=== PATIENT | female | born 2000 | race American Indian/Alaskan Native ===

== ENCOUNTER 2018-12-16 09:19 | Emergency (ER) | payer MEDICAID ==
[2018-12-16 10:11] LABS: Basophils # (Auto) 0.1 K/mm3 (0.0-0.1); Basophils % (Auto) 0.6 % (0.0-1.8); Eosinophils # (Auto) 0.2 K/mm3 (0.0-0.4); Eosinophils % (Auto) 2.7 % (0.0-4.3); Hematocrit 38.8 % (30.3-42.9); Hemoglobin 12.9 gm/dl (10.1-14.3); Lymphocytes # (Auto) 3.1 K/mm3 (1.2-5.4); Lymphocytes % (Auto) 35.9 % (13.4-35.0); Mean Corpuscular HGB Conc 33 % (30-34); Mean Corpuscular Volume 91 fl (79-97); Monocytes # (Auto) 0.4 K/mm3 (0.0-0.8); Platelet Count 262 K/mm3 (140-440); Red Blood Count 4.28 M/mm3 (3.65-5.03); Red Cell Distribution Width 15.5 % (13.2-15.2)
--- NOTE | 2018-12-16 10:26 | Emergency Department Report ---
ED Female HPI - General Chief complaint: Vaginal Bleeding Stated complaint: 12 WKS /BLEEDING/PAIN Time Seen by Provider: 12/16/18 09:56 Source: patient Mode of arrival: Ambulatory Limitations: No Limitations - History of Present Illness Initial comments: This 18-year-old presents to ED at approximately 12 weeks gestation with last menstrual period of 09/11/2018 presents with vaginal bleeding 3 days. She states that she noticed a couple of blood clot clumps in her vaginal bleed. Patient reports he received care at [facility]. SHe states she was seen there is some weeks ago and was about 8 weeks gestation. She reports bleeding has minimal light with lower pelvic cramping. She denies fevers/chills/dysuria/chest pain/shortness of breath or any other symptoms MD Complaint: vaginal bleeding - Related Data Previous Rx's Medication Instructions Recorded Last Taken Type Nitrofurantoin [place]/M-Cryst 100 mg PO Q12HR #14 capsule 12/16/18 Unknown Rx [Macrobid CAP] Allergies Allergy/AdvReac Type Severity Reaction Status Date / Time No Known Allergies Allergy Unverified 12/16/18 09:19 ED Review of Systems ROS: Stated complaint: 12 WKS /BLEEDING/PAIN Other details as noted in HPI ED Past Medical Hx - Past Medical History Previous Medical History?: No - Surgical History Past Surgical History?: No - Social History Smoking Status: Never Smoker Substance Use Type: None - Medications Home Medications: Home Medications Medication Instructions Recorded Confirmed Last Taken Type Nitrofurantoin [place]/M-Cryst 100 mg PO Q12HR #14 capsule 12/16/18 Unknown Rx [Macrobid CAP] ED Physical Exam - General Limitations: No Limitations General appearance: alert, in no apparent distress - Head Head exam: Present: atraumatic, normocephalic - Eye Eye exam: Present: normal appearance - ENT ENT exam: Present: mucous membranes moist - Neck Neck exam: Present: normal inspection - Respiratory Respiratory exam: Present: normal lung sounds bilaterally. Absent: respiratory distress - Cardiovascular Cardiovascular Exam: Present: regular rate, normal rhythm. Absent: systolic murmur, diastolic murmur, rubs, gallop - GI/Abdominal GI/Abdominal exam: Present: soft, normal bowel sounds - Extremities Exam Extremities exam: Present: normal inspection - Back Exam Back exam: Present: normal inspection - Neurological Exam Neurological exam: Present: alert, oriented X3 - Psychiatric Psychiatric exam: Present: normal affect, normal mood - Skin Skin exam: Present: warm, dry, intact, normal color. Absent: rash ED Course Vital Signs 12/16/18 12/16/18 09:25 12:39 Temperature 97.7 F Pulse Rate 80 Respiratory 16 18 Rate Blood Pressure 125/78 O2 Sat by Pulse 100 100 Oximetry ED Medical Decision Making - Lab Data Result diagrams: 12/16/18 09:48 12/16/18 09:48 Laboratory Last Values WBC 8.8 K/mm3 (4.5-11.0) 12/16/18 09:48 RBC 4.28 M/mm3 (3.65-5.03) 12/16/18 09:48 Hgb 12.9 gm/dl (10.1-14.3) 12/16/18 09:48 Hct 38.8 % (30.3-42.9) 12/16/18 09:48 MCV 91 fl (79-97) 12/16/18 09:48 MCH 30 pg (28-32) 12/16/18 09:48 MCHC 33 % (30-34) 12/16/18 09:48 RDW 15.5 % (13.2-15.2) H 12/16/18 09:48 Plt Count 262 K/mm3 (140-440) 12/16/18 09:48 Lymph % (Auto) 35.9 % (13.4-35.0) H 12/16/18 09:48 [place] % (Auto) 5.0 % (0.0-7.3) 12/16/18 09:48 Eos % (Auto) 2.7 % (0.0-4.3) 12/16/18 09:48 Baso % (Auto) 0.6 % (0.0-1.8) 12/16/18 09:48 Lymph # 3.1 K/mm3 (1.2-5.4) 12/16/18 09:48 [place] # 0.4 K/mm3 (0.0-0.8) 12/16/18 09:48 Eos # 0.2 K/mm3 (0.0-0.4) 12/16/18 09:48 Baso # 0.1 K/mm3 (0.0-0.1) 12/16/18 09:48 Seg Neutrophils % 55.8 % (40.0-70.0) 12/16/18 09:48 Seg Neutrophils # 4.9 K/mm3 (1.8-7.7) 12/16/18 09:48 Sodium 137 mmol/L (137-145) 12/16/18 09:48 Potassium 3.8 mmol/L (3.6-5.0) 12/16/18 09:48 Chloride 102.1 mmol/L (98-107) 12/16/18 09:48 Carbon Dioxide 23 mmol/L (22-30) 12/16/18 09:48 Anion Gap 16 mmol/L 12/16/18 09:48 BUN 9 mg/dL (7-17) 12/16/18 09:48 Creatinine 0.7 mg/dL (0.7-1.2) 12/16/18 09:48 Estimated GFR > 60 ml/min 12/16/18 09:48 BUN/Creatinine Ratio 13 % 12/16/18 09:48 Glucose 90 mg/dL (65-100) 12/16/18 09:48 Calcium 9.0 mg/dL (8.4-10.2) 12/16/18 09:48 HCG, Quant 2509 mIU/mL (0-4) H 12/16/18 09:48 Urine Color Yellow (Yellow) 12/16/18 10:21 Urine Turbidity Hazy (Clear) 12/16/18 10:21 Urine pH 7.0 (5.0-7.0) 12/16/18 10:21 Ur Specific [place] 1.015 (1.003-1.030) 12/16/18 10:21 Urine Protein <15 mg/dl mg/dL (Negative) 12/16/18 10:21 Urine Glucose (UA) Neg mg/dL (Negative) 12/16/18 10:21 Urine Ketones Neg mg/dL (Negative) 12/16/18 10:21 Urine Blood Mod (Negative) 12/16/18 10:21 Urine Nitrite Neg (Negative) 12/16/18 10:21 Urine Bilirubin Neg (Negative) 12/16/18 10:21 Urine Urobilinogen < 2.0 mg/dL (<2.0) 12/16/18 10:21 Ur Leukocyte Esterase Sm (Negative) 12/16/18 10:21 Urine WBC (Auto) 12.0 /HPF (0.0-6.0) H 12/16/18 10:21 Urine RBC (Auto) 14.0 /HPF (0.0-6.0) 12/16/18 10:21 U Epithel Cells (Auto) 1.0 /HPF (0-13.0) 12/16/18 10:21 Urine Bacteria (Auto) 2+ /HPF (Negative) 12/16/18 10:21 Urine Mucus Few /HPF 12/16/18 10:21 Blood Type B POSITIVE 12/16/18 09:48 Ord Rhogam Gestat Weeks Rh pos WEEKS 12/16/18 09:48 - Radiology Data Radiology results: report reviewed, image reviewed US OB <= 14 weeks fetus, US OB transvaginal /ULTRASOUND OB - TRANSABDOMINAL AND TRANSVAGINAL INDICATION: vag bleed for 3 days. COMPARISON: None. FINDINGS: Transabdominal and transvaginal pelvic ultrasound performed in this patient with stated clinical age of 12 weeks and 3 days and EDC of 06/27/2019. Serum beta-hCG not available at this time. A 8.7 x 5.5 x 7.1 cm retroverted uterus with heterogeneous endometrial thickness of 1.4 cm toward the fundus, endovaginal image 26. No sonographic evidence of an intrauterine gestation at this time. No significant pelvic free fluid. Both ovaries appear within normal limits. Right ovary is 3 x 1.2 x 2.1 cm. Left ovary estimated at 2 x 1.2 x 3.6 cm. IMPRESSION: No sonographic evidence of a viable intrauterine gestation at this time with nonspecific endometrial heterogeneity towards the fundus and a retroverted uterus incidentally noted, as described. Please also correlate clinically for accuracy of the LMP/ clinical age and with (serial) serum beta-hCG values. Thank you for the opportunity to participate in this patient's care. Signer Name: Marialuisa Duncan Signed: 12/16/2018 11:50 AM Workstation Name: [id number] Transcribed By: DAPHNEY Dictated By: MARIALUISA DUNCAN MD Electronically Authenticated By: MARIALUISA DUNCAN MD Signed Date/Time: 12/16/18 1150 - Medical Decision Making 18-year-old female presents to ED with complete spontaneous ED course: Pt received ultra sound, CBC, urinalysis, test and quantitative ED All labs within normal limits, quantitative elevated to 2500. This is low for a of 12 weeks Ultrasound shows no intrauterine and uterus. See reported above Discussed all this findings with the patient. I discussed with the patient most likely she had a miscarriage. Vital signs normalized patient is in no acute distress. I discussed with the patient if follow-up with her [facility] woman [facility] in 2-3 days for repeat blood work I discussed all labs and ultrasound findings with the patient. I discussed with the patient that he if bleeding worsens or new symptoms develop to return to ED immediately Critical care attestation.: If time is entered above; I have spent that time in minutes in the direct care of this critically ill patient, excluding procedure time. ED Disposition Clinical Impression: Vaginal bleeding during , Spontaneous , UTI (urinary tract infection) during Disposition: TO HOME OR SELFCARE Is pt being admited?: No Does the pt Need Aspirin: No Condition: Stable Instructions: Spontaneous Miscarriage (ED), Urinary Tract Infection in Women (ED) Additional Instructions: Make sure to follow up with the [facility] as discussed in 2-3 days for repeat bloodwork Take all your medications as you've been prescribed for Uti. If you have any worsening symptoms or develop new symptoms please return to ED immediately. Prescriptions: Nitrofurantoin [place]/M-Cryst [Macrobid CAP] 100 mg PO Q12HR #14 capsule Referrals: PRIMARY CAREMD [Referring] - 3-5 Days Forms: Work/School Release Form(ED) Time of Disposition: 13:32
[2018-12-16 10:31] LABS: BUN/Creatinine Ratio 13; Blood Urea Nitrogen 9 mg/dL (7-17); Hemolysis Index 2
[2018-12-16 10:48] LABS: Bacteria,Urine 2+ /HPF (Negative); Bilirubin,Urine NEG (Negative); Blood,Urine MOD (Negative); Color,Urine Yellow (Yellow); Mucus,Urine FEW /HPF; Protein,Urine <15 mg/dL mg/dL (Negative); Urobilinogen,Urine < 2.0 mg/dL (<2.0)
[2018-12-16] MEDS ORDERED: TYLENOL PO ONE (11:39)
--- NOTE | 2018-12-16 11:54 | Ultrasound Report ---
US OB <= 14 weeks fetus, US OB transvaginal /ULTRASOUND OB - TRANSABDOMINAL AND TRANSVAGINAL INDICATION: vag bleed for 3 days. COMPARISON: None. FINDINGS: Transabdominal and transvaginal pelvic ultrasound performed in this patient with stated cli nical age of 12 weeks and 3 days and EDC of 06/27/2019. Serum beta-hCG not available at this time. A 8.7 x 5.5 x 7.1 cm retroverted uterus with heterogeneous endometrial thickness of 1.4 cm toward the fundus, endovaginal image 26. No sonographic evidence of an intrauterine gestation at this time. No significant pelvic free fluid. Both ovaries appear within normal limits. Right ovary is 3 x 1.2 x 2.1 cm. Left ovary estimated at 2 x 1.2 x 3.6 cm. IMPRESSION: No sonographic evidence of a viable intrauterine gestation at this time with nonspecific endometrial heterogeneity towards the fundus and a retroverted uterus incidentally noted, as describe d. Please also correlate clinically for accuracy of the LMP/clinical age and with (serial) serum beta -hCG values. Thank you for the opportunity to participate in this patient's care. Signer Name: Marialuisa Lopez Signed: 12/16/2018 11:50 AM Workstation Name: [id number]
[2018-12-16 14:21] VITALS: BP 120/74
== END 2018-12-16 14:19 | disposition home or self-care (01) ==
LOC: ED 09:19
DX: O03.9 Complete or unspecified spontaneous abortion without complication (principal); O23.41 Unspecified infection of urinary tract in pregnancy, first trimester; Z3A.12 12 weeks gestation of pregnancy; Z79.899 Other long term (current) drug therapy
CPT/HCPCS: 36415; 76801; 76817; 80048; 81001; 84702; 85025; 86900; 86901; 87076; 87086; 87186; 96372; 99284

== ENCOUNTER 2019-04-23 21:35 | Emergency (ER) | payer MEDICAID ==
[2019-04-23 21:45] VITALS: BP 114/78
--- NOTE | 2019-04-23 22:17 | XRay Report ---
Left knee 3 views INDICATION: Left knee pain following injury IMPRESSION: Small knee effusion. No fracture or subluxation or significant degenerative change. No ra diopaque foreign body appreciated. Signer Name: Don Winters MD Signed: 04/23/2019 10:12 PM Workstation Name: [id number]
[2019-04-23] MEDS ORDERED: LIDOCAINE (1%) 10 MG/1 ML VIAL 20 ML MDV INFILTRATI ONE (22:40)
[2019-04-23] MEDS ORDERED: TETANUS,DIPH,PERTUSS(ACELL) VACCINE 0.5 ML SYRINGE IM ONE (22:40)
[2019-04-23] MEDS ORDERED: HYDROcodone/ACETAMINOPHEN 5-325 MG TAB PO ONE (22:40)
[2019-04-23] MEDS ORDERED: HYDROcodone/ACETAMINOPHEN 5-325 MG TAB ONE (22:43)
--- NOTE | 2019-04-23 22:58 | Emergency Department Report ---
ED Lower Extremity HPI - General Chief Complaint: Extremity Injury, Lower Stated Complaint: KNEE INJURY Time Seen by Provider: 04/23/19 22:25 Source: patient Mode of arrival: Ambulatory Limitations: No Limitations - History of Present Illness Initial Comments: Patient is a 18-year-old female presents emergency room with complaints of falling out of the bed that occurred just prior to arrival. She states that she fell directly onto her left knee which fell onto a glass and broke the glass. She has a lacerations to her left knee. She states that she has pain in her left knee. She is ambulatory with discomfort. She is unsure of her last tetanus immunization. She denies any numbness or weakness. She denies any past medical history. She denies any allergies to medications. - Related Data Previous Rx's Medication Instructions Recorded Last Taken Type Nitrofurantoin [place]/M-Cryst 100 mg PO Q12HR #14 capsule 12/16/18 Unknown Rx [Macrobid CAP] Ibuprofen [Motrin 400 MG tab] 400 mg PO Q8H PRN #14 tablet 04/24/19 Unknown Rx traMADoL [Ultram 50 MG tab] 50 mg PO Q6HR PRN #7 tablet 04/24/19 Unknown Rx Allergies Allergy/AdvReac Type Severity Reaction Status Date / Time No Known Allergies Allergy Verified 04/23/19 22:49 ED Review of Systems ROS: Stated complaint: KNEE INJURY Other details as noted in HPI Comment: All other systems reviewed and negative ED Past Medical Hx - Past Medical History Previous Medical History?: No - Surgical History Past Surgical History?: No - Social History Smoking Status: Never Smoker Substance Use Type: Marijuana - Medications Home Medications: Home Medications Medication Instructions Recorded Confirmed Last Taken Type Nitrofurantoin [place]/M-Cryst 100 mg PO Q12HR #14 capsule 12/16/18 Unknown Rx [Macrobid CAP] Ibuprofen [Motrin 400 MG tab] 400 mg PO Q8H PRN #14 tablet 04/24/19 Unknown Rx traMADoL [Ultram 50 MG tab] 50 mg PO Q6HR PRN #7 tablet 04/24/19 Unknown Rx ED Physical Exam - General Limitations: No Limitations General appearance: alert, in no apparent distress - Head Head exam: Present: atraumatic, normocephalic - Eye Eye exam: Present: normal appearance - ENT ENT exam: Present: mucous membranes moist - Extremities Exam Extremities exam: Present: other (3 cm laceration present to the left anterior lau just inferior to the left knee, directly inferior to this laceration there is another 4 cm laceration, there is a 1 cm superificial laceration present to the left anterior knee, FROM of the left knee with discomfort upon flexion, no obvious deformity, no obvious foreign body, bleeding controlled, neurovascularly intact, no tendon/muscle involvement) - Neurological Exam Neurological exam: Present: alert, oriented X3 - Psychiatric Psychiatric exam: Present: normal affect, normal mood - Skin Skin exam: Present: warm, dry ED Course Vital Signs 04/23/19 04/24/19 21:38 00:50 Temperature 97.9 F 97.9 F Pulse Rate 94 H 94 H Respiratory 18 18 Rate Blood Pressure 114/78 O2 Sat by Pulse 99 99 Oximetry - Laceration /Wound Repair Left Leg Wound Location: lower extremity (two lacerations to the left leg just inferior to the left knee) Wound Length (cm): 4 Wound's Depth, Shape: superficial Wound Explored: clean Irrigated w/ Saline (ccs): 100 Betadine Prep?: Yes Anesthesia: 1% Lidocaine Volume Anesthetic (ccs): 10 Wound Debrided: minimal Wound Repaired With: sutures Suture Size/Type: 4:0 Number of Sutures: 13 Layer Closure?: No Sterile Dressing Applied?: Yes Progress: 2 lacerations irrigated with saline and thoroughly scrubbed with Betadine, no foreign body, no muscle/tendon involvement, 4 cc of 1% lidocaine without epinephrine used for the 3 cm laceration, 6 cc of 1% lidocaine without epinephrine used for the 4 cm laceration, Betadine prep again, sterile drapes applied, sterile gloves worn, 3 cm laceration closed with 4-0 Prolene 6 sutures placed, 4 cm laceration closed with 4-0 Prolene 7 sutures placed, a total of 13 sutures were placed, patient tolerated well, bleeding controlled, no complications, sterile dressing applied ED Lower Extremity MDM - Radiology Data Radiology results: report reviewed Left knee 3 views INDICATION: Left knee pain following injury IMPRESSION: Small knee effusion. No fracture or subluxation or significant degenerative change. No radiopaque foreign body appreciated. Signer Name: Don Winters MD Signed: 04/23/2019 10:12 PM Workstation Name: [id number] Transcribed By: Dictated By: Don Winters MD Electronically Authenticated By: Don Winters MD Signed Date/Time: 04/23/192211 DD/ 10 TD/TT: - Medical Decision Making Patient is a 18-year-old female presents emergency room with complaints of falling out of the bed that occurred just prior to arrival. She states that she fell directly onto her left knee which fell onto a glass and broke the glass. She has a lacerations to her left knee. She states that she has pain in her left knee. She is ambulatory with discomfort. She is unsure of her last tetanus immunization. She denies any numbness or weakness. She denies any past medical history. She denies any allergies to medications. on exam: 3 cm laceration present to the left anterior lau just inferior to the left knee, directly inferior to this laceration there is another 4 cm laceration, there is a 1 cm superificial laceration present to the left anterior knee, FROM of the left knee with discomfort upon flexion, no obvious deformity, no obvious foreign body, bleeding controlled, neurovascularly intact, no tendon/muscle involvement. 2 larger lacerations repaired per procedure note. Smaller superficial laceration repaired with Dermabond and Steri-Strips by nurse. XR left knee: Small knee effusion. No fracture or subluxation or significant degenerative change. No radiopaque foreign body appreciated. Ordered for patient to receive knee immobilizer and crutches. Patient given tetanus immunization. Patient's pain treated while in the emergency department. Patient given prescription for tramadol and ibuprofen. advised pt to Please take medication as prescribed as needed. Do not drive or operate machinery while taking pain medication. Please keep areas clean, dry, covered. please wash with soap and water and immediately dry. No hot tub, pool, soaking in water. Follow-up with orthopedic doctor. Follow-up with a primary care doctor. Sutures will need to be removed in 10 to 14 days. Return to the emergency room for any new or worsening symptoms or any signs of infection. - Differential Diagnosis strain, sprain, fx, dislocation, laceration, abrasion, contusion, effusion Critical care attestation.: If time is entered above; I have spent that time in minutes in the direct care of this critically ill patient, excluding procedure time. ED Disposition Clinical Impression: Laceration Left knee pain Qualifiers: Chronicity: acute Qualified Code(s): M25.562 - Pain in left knee Disposition: DC-01 TO HOME OR SELFCARE Is pt being admited?: No Does the pt Need Aspirin: No Condition: Stable Instructions: Suture Care (ED), Laceration (ED), Knee Pain (ED) Additional Instructions: Please take medication as prescribed as needed. Do not drive or operate machinery while taking pain medication. Please keep areas clean, dry, covered. please wash with soap and water and immediately dry. No hot tub, pool, soaking in water. Follow-up with orthopedic doctor. Follow-up with a primary care doctor. Sutures will need to be removed in 10 to 14 days. Return to the emergency room for any new or worsening symptoms or any signs of infection. Prescriptions: Ibuprofen [Motrin 400 MG tab] 400 mg PO Q8H PRN #14 tablet PRN Reason: Pain, Moderate (4-6) traMADoL [Ultram 50 MG tab] 50 mg PO Q6HR PRN #7 tablet PRN Reason: Pain , Severe (7-10) Referrals: TESS CORLEY MD [Staff Physician] - 2-3 Days [facility] [Provider Group] - 2-3 Days ARIADNA BUCHANAN MD [Staff Physician] - 2-3 Days ARAMIS HUTCHINS MD [Staff Physician] - 2-3 Days [facility] [Outside] - 2-3 Days Time of Disposition: 00:06 Print Language: CZECH
== END 2019-04-24 00:51 | disposition home or self-care (01) ==
LOC: ED 21:35
DX: S81.012A Laceration without foreign body, left knee, initial encounter (principal); M25.562 Pain in left knee; F12.90 Cannabis use, unspecified, uncomplicated; Z79.899 Other long term (current) drug therapy; W06.XXXA Fall from bed, initial encounter; Y93.89 Activity, other specified; Y92.89 Other specified places as the place of occurrence of the external cause; Y99.8 Other external cause status
CPT/HCPCS: 90471; 90715

== ENCOUNTER 2020-02-13 12:53 | Emergency (ER) | payer MEDICAID ==
[2020-02-13 12:58] VITALS: BP 103/59
--- NOTE | 2020-02-13 13:55 | Event Note ---
ED Screening Note ED Screening Note: states she had 3 test over the counter, states she first did it in december LNMP: 12/05/2019 states she began having bleeding and pain last week states it is intermittent no fever no v/d no dysuria PMHx none no allergies to meds /P:1/A:1 This initial assessment/diagnostic orders/clinical plan/treatment(s) is/are subject to change based on patients health status, clinical progression and re- assessment by fellow clinical providers in the ED. Further treatment and workup at subsequent clinical providers discretion. Patient/guardian urged not to elope from the ED as their condition may be serious if not clinically assessed and managed. Initial orders include: labs, UA, US
[2020-02-13 14:03] LABS: HCG Qualitative,Urine Negative (Negative)
[2020-02-13 14:06] LABS: Bacteria,Urine 1+ /HPF (Negative); Bilirubin,Urine NEG (Negative); Blood,Urine NEG (Negative); Color,Urine Yellow (Yellow); Mucus,Urine 2+ /HPF; Urobilinogen,Urine < 2.0 mg/dL (<2.0)
[2020-02-13 14:27] LABS: Basophils % (Auto) 0.4 % (0.0-1.8); Eosinophils # (Auto) 0.2 K/mm3 (0.0-0.4); Eosinophils % (Auto) 2.1 % (0.0-4.3); Hematocrit 40.6 % (30.3-42.9); Hemoglobin 13.6 gm/dl (10.1-14.3); Lymphocytes # (Auto) 3.1 K/mm3 (1.2-5.4); Mean Corpuscular HGB Conc 33 % (30-34); Mean Corpuscular Volume 94 fl (79-97); Monocytes # (Auto) 0.5 K/mm3 (0.0-0.8); Monocytes % (Auto) 5.9 % (0.0-7.3); Platelet Count 233 K/mm3 (140-440); Red Blood Count 4.31 M/mm3 (3.65-5.03)
[2020-02-13 14:49] LABS: Alanine Aminotransferase 12 units/L (7-56); Albumin 4.4 g/dL (3.9-5); Blood Urea Nitrogen 9 mg/dL (7-17); Calcium 9.5 mg/dL (8.4-10.2); Hemolysis Index 3
[2020-02-13 14:52] LABS: BUN/Creatinine Ratio 13
--- NOTE | 2020-02-13 15:52 | Ultrasound Report ---
PELVIC ULTRASOUND HISTORY: Pelvic pain. FINDINGS: Imaging was performed by transabdominally and endovaginally. The uterus measures 8.1 x 4.9 x 5.7 cm. The endometrial stripe measures 6 mm. Right ovary measures 3 x 2 x 2.6 cm. Left ovary measures 5.2 x 1.4 x 2.1 cm. Both ovaries demonstrate flow. Negative for adnexal mass or fluid collection. Trace free fluid is seen at the cul-de-sac. IMPRESSION: 1. Uterus and ovaries unremarkable. 2. Trace free fluid at the cul-de-sac. Signer Name: Jaden Servin MD Signed: 02/13/2020 3:47 PM Workstation Name: [id number]
--- NOTE | 2020-02-13 16:24 | Emergency Department Report ---
ED General Adult HPI - General Chief complaint: Vaginal Bleeding Stated complaint: BLEEDING/MISCARRIAGE Time Seen by Provider: 02/13/20 13:52 Source: patient Mode of arrival: Ambulatory Limitations: No Limitations - History of Present Illness Initial comments: pt is a 19 yo female who presents to the ED states she had 3 positive test over the counter, states she first did it in december LNMP: 12/05/2019 states she began having bleeding and pain last week states it is intermittent she has not seen anyone for this no fever no v/d no dysuria does not report any vaginal discharge or irritation PMHx none no allergies to meds /P:1/A:1 - Related Data Previous Rx's Medication Instructions Recorded Last Taken Type Nitrofurantoin Brule/M-Cryst 100 mg PO Q12HR #14 capsule 12/16/18 Unknown Rx [Macrobid CAP] Ibuprofen [Motrin 400 MG tab] 400 mg PO Q8H PRN #14 tablet 04/24/19 Unknown Rx traMADoL [Ultram 50 MG tab] 50 mg PO Q6HR PRN #7 tablet 04/24/19 Unknown Rx cephALEXin [Keflex] 500 mg PO BID 7 Days #14 cap 02/13/20 Unknown Rx Allergies Allergy/AdvReac Type Severity Reaction Status Date / Time No Known Allergies Allergy Verified 02/13/20 12:54 ED Review of Systems ROS: Stated complaint: BLEEDING/MISCARRIAGE Other details as noted in HPI Comment: All other systems reviewed and negative ED Past Medical Hx - Past Medical History Previous Medical History?: No - Surgical History Past Surgical History?: No - Social History Smoking Status: Never Smoker - Medications Home Medications: Home Medications Medication Instructions Recorded Confirmed Last Taken Type Nitrofurantoin Brule/M-Cryst 100 mg PO Q12HR #14 capsule 12/16/18 Unknown Rx [Macrobid CAP] Ibuprofen [Motrin 400 MG tab] 400 mg PO Q8H PRN #14 tablet 04/24/19 Unknown Rx traMADoL [Ultram 50 MG tab] 50 mg PO Q6HR PRN #7 tablet 04/24/19 Unknown Rx cephALEXin [Keflex] 500 mg PO BID 7 Days #14 cap 02/13/20 Unknown Rx ED Physical Exam - General Limitations: No Limitations General appearance: alert, in no apparent distress - Head Head exam: Present: atraumatic, normocephalic - Eye Eye exam: Present: normal appearance - ENT ENT exam: Present: mucous membranes moist - Respiratory Respiratory exam: Present: normal lung sounds bilaterally. Absent: respiratory distress, wheezes, rales, rhonchi, stridor, chest wall tenderness, accessory muscle use, decreased breath sounds, prolonged expiratory - Cardiovascular Cardiovascular Exam: Present: regular rate, normal rhythm, normal heart sounds. Absent: systolic murmur, diastolic murmur, rubs, gallop - GI/Abdominal GI/Abdominal exam: Present: soft, normal bowel sounds. Absent: distended, tenderness, guarding, rebound, rigid - Neurological Exam Neurological exam: Present: alert, oriented X3 - Psychiatric Psychiatric exam: Present: normal affect, normal mood - Skin Skin exam: Present: warm, dry, intact ED Course Vital Signs 02/13/20 12:55 Temperature 98 F Pulse Rate 97 H Respiratory 18 Rate Blood Pressure 103/59 O2 Sat by Pulse 97 Oximetry ED Medical Decision Making - Lab Data Result diagrams: 02/13/20 14:01 02/13/20 14:01 Lab Results 02/13/20 02/13/20 02/13/20 Range/Units 14:01 14:01 14:01 WBC 8.0 (4.5-11.0) K/mm3 RBC 4.31 (3.65-5.03) M/mm3 Hgb 13.6 (10.1-14.3) gm/dl Hct 40.6 (30.3-42.9) % MCV 94 (79-97) fl MCH 32 (28-32) pg MCHC 33 (30-34) % RDW 14.0 (13.2-15.2) % Plt Count 233 (140-440) K/mm3 Lymph % (Auto) 38.0 H (13.4-35.0) % Brule % (Auto) 5.9 (0.0-7.3) % Eos % (Auto) 2.1 (0.0-4.3) % Baso % (Auto) 0.4 (0.0-1.8) % Lymph # (Auto) 3.1 (1.2-5.4) K/mm3 Brule # (Auto) 0.5 (0.0-0.8) K/mm3 Eos # (Auto) 0.2 (0.0-0.4) K/mm3 Baso # (Auto) 0.0 (0.0-0.1) K/mm3 Seg Neutrophils % 53.6 (40.0-70.0) % Seg Neutrophils # 4.3 (1.8-7.7) K/mm3 Sodium 139 (137-145) mmol/L Potassium 3.7 (3.6-5.0) mmol/L Chloride 104.3 (98-107) mmol/L Carbon Dioxide 26 (22-30) mmol/L Anion Gap 12 mmol/L BUN 9 (7-17) mg/dL Creatinine 0.7 (0.6-1.2) mg/dL Estimated GFR > 60 ml/min BUN/Creatinine Ratio 13 % Glucose 82 (65-100) mg/dL Calcium 9.5 (8.4-10.2) mg/dL Total Bilirubin 0.40 (0.1-1.2) mg/dL AST 18 (5-40) units/L ALT 12 (7-56) units/L Alkaline Phosphatase 57 (35-129) units/L Total Protein 7.7 (6.3-8.2) g/dL Albumin 4.4 (3.9-5) g/dL Albumin/Globulin Ratio 1.3 % HCG, Quant < 2 (0-4) mIU/mL Urine Color (Yellow) Urine Turbidity (Clear) Urine pH (5.0-7.0) Ur Specific Mcdonald (1.003-1.030) Urine Protein (Negative) mg/dL Urine Glucose (UA) (Negative) mg/dL Urine Ketones (Negative) mg/dL Urine Blood (Negative) Urine Nitrite (Negative) Ur Reducing Substances Urine Bilirubin (Negative) Urine Ictotest Urine Urobilinogen (<2.0) mg/dL Ur Leukocyte Esterase (Negative) Urine WBC (Auto) (0.0-6.0) /HPF Urine RBC (Auto) (0.0-6.0) /HPF U Epithel Cells (Auto) (0-13.0) /HPF Urine Bacteria (Auto) (Negative) /HPF Urine Mucus /HPF Urine HCG, Qual (Negative) Blood Type 02/13/20 02/13/20 Range/Units 14:06 Unknown WBC (4.5-11.0) K/mm3 RBC (3.65-5.03) M/mm3 Hgb (10.1-14.3) gm/dl Hct (30.3-42.9) % MCV (79-97) fl MCH (28-32) pg MCHC (30-34) % RDW (13.2-15.2) % Plt Count (140-440) K/mm3 Lymph % (Auto) (13.4-35.0) % Brule % (Auto) (0.0-7.3) % Eos % (Auto) (0.0-4.3) % Baso % (Auto) (0.0-1.8) % Lymph # (Auto) (1.2-5.4) K/mm3 Brule # (Auto) (0.0-0.8) K/mm3 Eos # (Auto) (0.0-0.4) K/mm3 Baso # (Auto) (0.0-0.1) K/mm3 Seg Neutrophils % (40.0-70.0) % Seg Neutrophils # (1.8-7.7) K/mm3 Sodium (137-145) mmol/L Potassium (3.6-5.0) mmol/L Chloride (98-107) mmol/L Carbon Dioxide (22-30) mmol/L Anion Gap mmol/L BUN (7-17) mg/dL Creatinine (0.6-1.2) mg/dL Estimated GFR ml/min BUN/Creatinine Ratio % Glucose (65-100) mg/dL Calcium (8.4-10.2) mg/dL Total Bilirubin (0.1-1.2) mg/dL AST (5-40) units/L ALT (7-56) units/L Alkaline Phosphatase (35-129) units/L Total Protein (6.3-8.2) g/dL Albumin (3.9-5) g/dL Albumin/Globulin Ratio % HCG, Quant (0-4) mIU/mL Urine Color Yellow (Yellow) Urine Turbidity Slightly-cloudy (Clear) Urine pH 7.0 (5.0-7.0) Ur Specific Mcdonald 1.024 (1.003-1.030) Urine Protein 30 mg/dl (Negative) mg/dL Urine Glucose (UA) Neg (Negative) mg/dL Urine Ketones Neg (Negative) mg/dL Urine Blood Neg (Negative) Urine Nitrite Neg (Negative) Ur Reducing Substances Not Reportable Urine Bilirubin Neg (Negative) Urine Ictotest Not Reportable Urine Urobilinogen < 2.0 (<2.0) mg/dL Ur Leukocyte Esterase Mod (Negative) Urine WBC (Auto) 21.0 H (0.0-6.0) /HPF Urine RBC (Auto) 9.0 (0.0-6.0) /HPF U Epithel Cells (Auto) 11.0 (0-13.0) /HPF Urine Bacteria (Auto) 1+ (Negative) /HPF Urine Mucus 2+ /HPF Urine HCG, Qual Negative (Negative) Blood Type B POSITIVE - Radiology Data Radiology results: report reviewed Ordering Physician: JOESPH SINGH Date of Service: 02/13/20 Procedure(s): US transvaginal Accession Number(s): [id number] cc: JOESPH SINGH PELVIC ULTRASOUND HISTORY: Pelvic pain. FINDINGS: Imaging was performed by transabdominally and endovaginally. The uterus measures 8.1 x 4.9 x 5.7 cm. The endometrial stripe measures 6 mm. Right ovary measures 3 x 2 x 2.6 cm. Left ovary measures 5.2 x 1.4 x 2.1 cm. Both ovaries demonstrate flow. Negative for adnexal mass or fluid collection. Trace free fluid is seen at the cul-de-sac. IMPRESSION: 1. Uterus and ovaries unremarkable. 2. Trace free fluid at the cul-de-sac. Signer Name: Jaden Servin MD Signed: 02/13/2020 3:47 PM Workstation Name: [id number] Transcribed By: ES Dictated By: Jaden Servin MD Electronically Authenticated By: Jaden Servin MD Signed Date/Time: 02/13/20 1547 DD/ 1546 TD/TT: - Medical Decision Making pt is a 19 yo female who presents to the ED states she had 3 positive test over the counter, states she first did it in december LNMP: 12/05/2019 states she began having bleeding and pain last week states it is intermittent she has not seen anyone for this no fever no v/d no dysuria does not report any vaginal discharge or irritation PMHx none no allergies to meds /P:1/A:1 Vitals are stable. No abdominal tenderness on exam, no guarding, no rebound, no rigidity, normal bowel sounds, no peritoneal signs. Labs are normal. hCG quant is less than 2. UA shows evidence of UTI. US: 1. Uterus and ovaries unremarkable. 2. Trace free fluid at the cul-de-sac. Discussed with patient that she is not . Discussed findings of UTI with patient. Discussed the importance of PATIENT OFFICE REP follow-up given abnormal menstrual cycles. She states that she goes to [facility]. Patient given prescription for Keflex. Advised patient Please take medication as prescribed. Increase your water i ntake. May take Tylenol or ibuprofen as needed for any discomfort. Follow-up with PATIENT OFFICE REP. Follow-up with primary care doctor. Return to emergency room for new or worsening symptoms. - Differential Diagnosis IUP, ectopic, AUB, UTI, hemorrhagic cyst, fibroids, endometriosis Critical care attestation.: If time is entered above; I have spent that time in minutes in the direct care of this critically ill patient, excluding procedure time. ED Disposition Clinical Impression: Irregular menses UTI (urinary tract infection) Qualifiers: Urinary tract infection type: acute cystitis Hematuria presence: with hematuria Qualified Code(s): N30.01 - Acute cystitis with hematuria Disposition: - TO HOME OR SELFCARE Is pt being admited?: No Does the pt Need Aspirin: No Condition: Stable Instructions: Abnormal Uterine Bleeding, Urinary Tract Infection, Adult, [id number] Additional Instructions: Please take medication as prescribed. Increase your water intake. May take Tylenol or ibuprofen as needed for any discomfort. Follow-up with PATIENT OFFICE REP. Follow-up with primary care doctor. Return to emergency room for new or worsening symptoms. Prescriptions: cephALEXin [Keflex] 500 mg PO BID 7 Days #14 cap Referrals: [facility] [Provider Group] - 2-3 Days MICHEL STEPHENSON MD [Primary Care Provider] - 2-3 Days Time of Disposition: 16:23 Print Language: MOHAWK
== END 2020-02-13 16:34 | disposition home or self-care (01) ==
LOC: ED 12:53
DX: N39.0 Urinary tract infection, site not specified (principal); N92.6 Irregular menstruation, unspecified; R10.2 Pelvic and perineal pain; N93.9 Abnormal uterine and vaginal bleeding, unspecified; Z79.1 Long term (current) use of non-steroidal anti-inflammatories (NSAID); Z79.899 Other long term (current) drug therapy
CPT/HCPCS: 36415; 76830; 76856; 80053; 81001; 81025; 84702; 85025; 86900; 86901; 87086